=== PATIENT | female | born 1955 | race Caucasian/White ===

== ENCOUNTER → 2016-12-16 | Outpatient (CLI) | payer BC ==
[~2016-12-16] MED LIST: AMLO-110 PO; CITA40TA4 PO; CLX20 PO; DOXY100C2 PO; NIFE30TA83 PO; PENT400T PO; TRAM-10 PO; TRN400 PO; WARF10TA4 PO
== END | disposition home or self-care (01) ==
LOC: C.MAMM 07:40
PROVIDERS: ATTEND Physician Assistant
DX: M34.9 Systemic sclerosis, unspecified (principal); M85.851 Other specified disorders of bone density and structure, right thigh; M85.852 Other specified disorders of bone density and structure, left thigh; M85.88 Other specified disorders of bone density and structure, other site

== ENCOUNTER → 2017-01-28 | Outpatient (CLI) | payer BC ==
[~2017-01-28] MED LIST changes: -AMLO-110 PO; -CITA40TA4 PO; -TRAM-10 PO; -TRN400 PO
--- NOTE | 2017-01-28 15:37 | MAMMOGRAPHY REPORT ---
BILATERAL DIGITAL SCREENING MAMMOGRAM WITH CAD: 01/28/2017 CLINICAL HISTORY: Routine screening. TECHNIQUE: Current study was also evaluated with a Computer Aided Detection (CAD) system. Bilateral CC and MLO views were obtained. COMPARISON: Comparison is made to exams dated: 01/25/2015 mammogram, 01/28/2016 mammogram, 01/24/2014 [facility], and 07/22/2006. BREAST COMPOSITION: There are scattered areas of fibroglandular density in both breasts. FINDINGS: No suspicious masses, calcifications, or areas of architectural distortion are noted in ei ther breast. There has been no significant interval change compared to prior exams. IMPRESSION: ACR BI-RADS CATEGORY 1: NEGATIVE There is no mammographic evidence of malignancy. A 1 year screening mammogram is recommended. The pa tient will receive written notification of the results. Approximately 10% of breast cancers are not detected with mammography. A negative mammographic report should not delay biopsy if a clinically suggestive mass is present. Claritza Roa M.D. ah/:01/28/2017 12:49:39 Shape Hand: Sergei ANGELO(R)(M), [facility] letter sent: Normal 1/2 BI-RADS Code: ACR BI-RADS Category 1: Negative
== END | disposition home or self-care (01) ==
LOC: C.MAMM 12:29
PROVIDERS: ATTEND Obstetrics & Gynecology
DX: Z12.31 Encounter for screening mammogram for malignant neoplasm of breast (principal)

== ENCOUNTER 2017-05-03 12:20 | Emergency (ER) | payer BC ==
[~2017-05-03] VITALS: Ht 167.6 cm; Wt 88.8 kg
[2017-05-03 12:34] VITALS: TEMP 36.9; Ht 167.6 cm; Wt 88.8 kg
[2017-05-03] MEDS ORDERED: TRAMADOL HCL 50 MG TAB PO STA (13:16)
[2017-05-03 13:44] LABS: INR 2.9 (0.9-1.1); PROTHROMBIN TIME (PATIENT) 32.9 SECONDS (9.0-12.0)
[2017-05-03] MEDS ORDERED: AMLO-110 PO (13:45)
[2017-05-03] MEDS ORDERED: TRN400 PO (13:45)
[2017-05-03] MEDS ORDERED: CITA40TA4 PO (13:45)
[2017-05-03] MEDS ORDERED: TRAM-10 PO (14:09)
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
[2017-05-03 14:24] VITALS: BP 151/87; PULSE 69; O2SAT 97
== END 2017-05-03 14:26 | disposition home or self-care (01) ==
LOC: C.EDB 12:21 → C.EDD 14:26
DX: S80.11XA Contusion of right lower leg, initial encounter (principal); S80.12XA Contusion of left lower leg, initial encounter; V29.3XXA Motorcycle rider (driver) (passenger) injured in unspecified nontraffic accident, initial encounter; E78.5 Hyperlipidemia, unspecified; I10 Essential (primary) hypertension; F32.9 Major depressive disorder, single episode, unspecified; M32.9 Systemic lupus erythematosus, unspecified; Z86.711 Personal history of pulmonary embolism; Z86.718 Personal history of other venous thrombosis and embolism; Z87.891 Personal history of nicotine dependence; Z90.49 Acquired absence of other specified parts of digestive tract; Z79.01 Long term (current) use of anticoagulants; Z79.899 Other long term (current) drug therapy; Z88.0 Allergy status to penicillin

== ENCOUNTER → 2017-06-02 | Outpatient (CLI) | payer BC ==
[~2017-06-02] MED LIST changes: +AMLO-110 PO; +CITA40TA4 PO; -CLX20 PO; -DOXY100C2 PO; -NIFE30TA83 PO; -PENT400T PO; +TRAM-10 PO; +TRN400 PO
--- NOTE | 2017-06-02 13:05 | DIAGNOSTIC IMAGING REPORT ---
RIGHT LOWER EXTREMITY VENOUS DOPPLER CLINICAL HISTORY: Right lower extremity skin changes. Chronic thromboembolism of deep vein of lower extremity. COMPARISON STUDY: Right lower extremity venous Doppler December 25, 2010. TECHNIQUE: Sonography of the deep venous system of the right lower extremity was performed. Compression and augmentation were evaluated. FINDINGS: The right common femoral, superficial femoral and popliteal veins were compressible. Augmentation was normal. Flow was shown within the deep calf vessels. Note was made of patent collaterals within the right groin as shown on CT of June 02, 2011. IMPRESSION: No evidence of deep venous thrombus within the right lower extremity. Electronically signed by: Asif Esqueda M.D. 06/02/2017 1:04 PM Dictated Date/Time: 06/02/2017 1:03 PM
== END | disposition home or self-care (01) ==
LOC: C.ULTRBC 11:53
PROVIDERS: ATTEND Physician Assistant
DX: I82.509 Chronic embolism and thrombosis of unspecified deep veins of unspecified lower extremity (principal)

== ENCOUNTER → 2017-07-02 | Outpatient (CLI) | payer BC | END | disposition home or self-care (01) | LOC: C.PAPS 15:56 | PROVIDERS: ATTEND Obstetrics & Gynecology | DX: Z01.419 Encounter for gynecological examination (general) (routine) without abnormal findings (principal) ==

== ENCOUNTER → 2017-09-24 | Outpatient (CLI) | payer BC ==
[2017-09-24 13:23] LABS: ALBUMIN 3.9 gm/dl (3.4-5.0); ALT/SGPT 20 U/L (12-78); AST/SGOT 14 U/L (15-37); BLOOD UREA NITROGEN 13 mg/dl (7-18); CALCIUM 9.4 mg/dl (8.5-10.1); CARBON DIOXIDE 27 mmol/L (21-32); CREATININE 0.78 mg/dl (0.60-1.20); GLUCOSE 86 mg/dl (70-99); POTASSIUM 4.5 mmol/L (3.5-5.1); SODIUM 137 mmol/L (136-145)
[2017-09-24 13:31] LABS: HEMOGLOBIN A1C 5.4 % (4.5-5.6)
[2017-09-24 13:32] LABS: ALKALINE PHOSPHATASE 48 U/L (45-117); TOTAL PROTEIN 7.7 gm/dl (6.4-8.2); TRANSFERRIN 249 mg/dl (200-360)
[2017-09-24 13:58] LABS: BASO % 0.8 %; BASO ABS # 0.04 K/uL (0-0.2); EOS % 3.2 %; EOS ABS # 0.16 K/uL (0-0.5); HEMATOCRIT 37.7 % (37-47); HEMOGLOBIN 13.1 g/dL (12.0-16.0); IG# 0.01 K/uL (0.00-0.02); LYMPH % 22.2 %; LYMPH ABS # 1.11 K/uL (1.2-3.4); MEAN CELL VOLUME 86.5 fL (80-100); MEAN CORPUSCULAR HGB CONC 34.7 g/dl (32-36); MEAN PLATELET VOLUME 9.9 fL (7.4-10.4); MONO % 10.2 %; MONO ABS # 0.51 K/uL (0.11-0.59); NEUT % 63.4 %; NEUT ABS # 3.17 K/uL (1.4-6.5); PLATELET COUNT 244 K/uL (130-400); RED CELL DISTRIBUTION WIDTH CV 13.1 % (11.5-14.5); RED CELL DISTRIBUTION WIDTH SD 41.7 fL (36.4-46.3)
== END | disposition home or self-care (01) ==
LOC: C.LAB1850 09:31
PROVIDERS: ATTEND Physician Assistant
DX: J01.90 Acute sinusitis, unspecified (principal)

== ENCOUNTER → 2017-09-25 | Outpatient (CLI) | payer BC | END | disposition home or self-care (01) | LOC: C.LAB1850 12:39 | PROVIDERS: ATTEND Physician Assistant | DX: R94.6 Abnormal results of thyroid function studies (principal) ==

== ENCOUNTER → 2017-10-15 | Outpatient (CLI) | payer BC | END | disposition home or self-care (01) | LOC: C.LABBFT 11:15 | PROVIDERS: ATTEND Physician Assistant | DX: R94.6 Abnormal results of thyroid function studies (principal) ==

== ENCOUNTER → 2017-11-25 | Outpatient (CLI) | payer BC ==
[~2017-11-25] MED LIST changes: -TRAM-10 PO
== END | disposition home or self-care (01) ==
LOC: C.LABBFT 08:35
PROVIDERS: ATTEND Physician Assistant
DX: E03.9 Hypothyroidism, unspecified (principal)